=== PATIENT | male | born 1945 | race African-American/Black ===

== ENCOUNTER 2019-12-27 09:47 | Emergency (ER) | payer OTHER ==
[~2019-12-27] VITALS: Ht 180.3 cm; Wt 70.3 kg
[~2019-12-27 09:47] MED LIST: IBUPROFEN 800800 M1 PO; LIDODERM 5%1 PATC1 TRANSDERM; NORCO 5-325 TA1 EACH PO
[2019-12-27] MEDS ORDERED: PREDNISONE 20 M20 MG PO (11:27)
[2019-12-27] MEDS ORDERED: LEVAQUIN 750 M750 MG PO (11:27)
[2019-12-27 12:04] VITALS: BP 133/71
--- NOTE | 2019-12-27 16:18 | EKG ---
[facility] [place] [address] ELECTROCARDIOGRAM REPORT Name: SADIE VIDALES Room #: DEP [facility]#: [id number] Admission: 12/27/19 Attend Phys: Discharge: 12/27/19 Date of : 41 Report #: [id number] THIS REPORT FOR: cc: FAM - Family physician unknown FAM - Family physician unknown Zaid Reaves MD ~ THIS REPORT FOR: //name// [facility] ED Test Date: 2019-12-27 Test Time: 10:07:40 Pat Name: SADIE VIDALES Department: Room: Gender: Senior Loss Control Specialist: : 1945 Requested By: Devan Calabrese Order Number: [id number] MD: Zaid Reaves Measurements Intervals [place] Rate: 85 P: 80 NC: 156 QRS: 13 QRSD: 88 T: -21 QT: 391 QTc: 465 Interpretive Statements Sinus rhythm Left atrial enlargement Left ventricular hypertrophy Anterior Q waves, possibly due to LVH Borderline T abnormalities, inferior leads No previous ECG available for comparison Electronically Signed On 12-27-2019 16:17:28 SNOW MAKER by Zaid Reaves [email or web address] <ELECTRONICALLY SIGNED> By: Zaid Reaves MD 12/27/19 1617 1007 1007 Zaid Reaves MD /EPI
== END 2019-12-27 12:05 | disposition home or self-care (01) ==
LOC: ER 09:47
DX: J18.9 Pneumonia, unspecified organism (principal); F17.210 Nicotine dependence, cigarettes, uncomplicated

== ENCOUNTER 2020-07-11 14:59 | Emergency (ER) | payer OTHER ==
[~2020-07-11] VITALS: Ht 182.9 cm; Wt 79.4 kg
[~2020-07-11 14:59] MED LIST changes: +LEVAQUIN 750 M750 MG PO; +PREDNISONE 20 M20 MG PO
[2020-07-11 16:12] LABS: BASOPHILS 0.8 % (0.0-2.0); EOSINOPHILS 2.4 % (0.0-3.0); HEMATOCRIT 46.4 % (42.0-52.0); HEMOGLOBIN 16.2 gm/dL (14.0-18.0); LYMPHOCYTES 26.6 % (24.0-44.0); MCH 34.6 pg (26.0-34.0); MCV 98.8 fL (80.0-100.0); MONOCYTES 10.2 % (1.0-8.0); PLATELET COUNT 283 thou/uL (150-400); RDW 14.5 % (10.5-14.5); WBC 8.4 thou/uL (4.0-11.0)
[2020-07-11 16:16] LABS: ANION GAP 11 mmol/L (7-16); BUN 10 mg/dL (7-18); CALCIUM 9.2 mg/dL (8.5-10.1); CHLORIDE 104 mmol/L (98-107); CO2 27 mmol/L (21-32); CREATININE 0.9 mg/dL (0.7-1.3); GLUCOSE 122 mg/dL (74-106); POTASSIUM 4.5 mmol/L (3.5-5.1); SODIUM 142 mmol/L (136-145)
[2020-07-11 16:26] LABS: ALBUMIN 3.7 g/dL (3.4-5.0); LIPASE 75 U/L (73-393); SGOT 20 U/L (15-37); SGPT 20 U/L (30-65); TOTAL BILIRUBIN 0.8 mg/dL (0.2-1.0); TOTAL PROTEIN 8.3 g/dL (6.4-8.2); TROPONIN-I <0.06 ng/mL (<0.06)
[2020-07-11 18:02] LABS: URINE BILIRUBIN NEGATIVE (Negative); URINE BLOOD TRACE (Negative); URINE CLARITY SL CLOUDY; URINE COLOR YELLOW; URINE GLUCOSE-RANDOM* NEGATIVE (Negative); URINE KETONES NEGATIVE (Negative); URINE LEUKOCYTES-REFLEX TRACE (Negative); URINE NITRITE-REFLEX POSITIVE (Negative); URINE PROTEIN (DIPSTICK) NEGATIVE (Negative); URINE SPECIFIC GRAVITY 1.025 (1.005-1.035); URINE UROBILINOGEN 0.2 E.U./dl (0.2-1.0)
[2020-07-11 18:08] LABS: BACTERIA-REFLEX >30 Many /HPF (None Seen); CRYSTALS None Seen /LPF (None Seen); HYALINE CASTS 0-3 Few /LPF (None Seen); SQUAMOUS 0-3 Few /LPF (0-3); URINE WBC-REFLEX 6-15 Few /HPF (0-5)
[2020-07-11 18:17] LABS: URINE RBC 0-2 Rare /HPF (0-2)
[2020-07-11] MEDS ORDERED: NORCO 5-325 TA1 EAC2 PO (19:15)
[2020-07-11] MEDS ORDERED: LIDODERM1 EACH TOP (19:15)
[2020-07-11 19:23] VITALS: BP 180/94
--- NOTE | 2020-07-13 16:30 | EKG ---
[facility] [place] [address] ELECTROCARDIOGRAM REPORT Name: SADIE VIDALES Room #: [facility]#: [id number] Admission: 07/11/20 Attend Phys: Discharge: 07/11/20 Date of : 41 Report #: [id number] THIS REPORT FOR: cc: FAM - Family physician unknown FAM - Family physician unknown Aldair Larios MD [facility] THIS REPORT FOR: //name// [facility] ED Test Date: 2020-07-11 Test Time: 15:01:22 Pat Name: SADIE VIDALES Department: Room: Gender: Shafting Cleaner: [facility] : 1945 Requested By: Amish Garcia Order Number: [id number] MD: Aldair Larios Measurements Intervals [place] Rate: 102 P: 73 WY: 159 QRS: 36 QRSD: 72 T: 38 QT: 349 QTc: 455 Interpretive Statements Sinus tachycardia Anteroseptal infarct, old Minimal ST depression, lateral leads Baseline wander in lead(s) I,III,aVL Compared to ECG 12/27/2019 10:07:40 ST (T wave) deviation now present Electronically Signed On 07-13-2020 16:29:48 CDT by Aldair Larios [email or web address] <ELECTRONICALLY SIGNED> By: Aldair Larios MD, FAC 07/13/20 1629 1501 1501 Aldair Larios MD, FAC /EPI
== END 2020-07-11 20:14 | disposition home or self-care (01) ==
LOC: ER 14:59
PROVIDERS: Emergency Medicine
DX: S22.32XA Fracture of one rib, left side, initial encounter for closed fracture (principal); R10.12 Left upper quadrant pain; F17.210 Nicotine dependence, cigarettes, uncomplicated; X58.XXXA Exposure to other specified factors, initial encounter; Y93.89 Activity, other specified; Y92.89 Other specified places as the place of occurrence of the external cause; Y99.8 Other external cause status

== ENCOUNTER 2020-12-11 11:44 | Inpatient (IN) | payer OTHER ==
[~2020-12-11] VITALS: Ht 182.9 cm; Wt 72.6 kg
[~2020-12-11 11:44] MED LIST changes: +LIDODERM1 EACH TOP; +NORCO 5-325 TA1 EAC2 PO
[2020-12-11 11:55] VITALS: BP 137/69
[2020-12-11 12:57] LABS: HEMOGLOBIN 14.6 gm/dL (14.0-18.0); MCH 32.2 pg (26.0-34.0); MCHC 33.3 g/dL (28.0-37.0); MCV 96.6 fL (80.0-100.0); PLATELET COUNT 286 thou/uL (150-400); RBC 4.55 mil/uL (4.50-6.00); RDW 14.9 % (10.5-14.5); WBC 32.1 thou/uL (4.0-11.0)
[2020-12-11 13:01] LABS: ANION GAP 12 mmol/L (7-16); BUN 11 mg/dL (7-18); CHLORIDE 98 mmol/L (98-107); CO2 24 mmol/L (21-32); CREATININE 1.5 mg/dL (0.7-1.3); GLUCOSE 135 mg/dL (74-106); POTASSIUM 3.8 mmol/L (3.5-5.1); SODIUM 134 mmol/L (136-145)
[2020-12-11 13:11] LABS: ALBUMIN 3.6 g/dL (3.4-5.0); LIPASE 33 U/L (73-393); SGOT 18 U/L (15-37); SGPT 21 U/L (30-65); TOTAL BILIRUBIN 1.3 mg/dL (0.2-1.0); TOTAL PROTEIN 8.5 g/dL (6.4-8.2); TROPONIN-I <0.06 ng/mL (<0.06)
[2020-12-11 13:47] LABS: ABSOLUTE NEUTROPHILS 29.5 thou/uL (1.4-8.2); PLATELET ESTIMATE NORMAL
[2020-12-11 15:30] LABS: URINE BILIRUBIN NEGATIVE (Negative); URINE BLOOD 1+ (Negative); URINE CLARITY CLEAR; URINE COLOR YELLOW; URINE GLUCOSE-RANDOM* NEGATIVE (Negative); URINE KETONES NEGATIVE (Negative); URINE LEUKOCYTES-REFLEX NEGATIVE (Negative); URINE PROTEIN (DIPSTICK) 1+ (Negative)
[2020-12-11 15:33] LABS: URINE NITRITE-REFLEX POSITIVE (Negative)
[2020-12-11 15:51] LABS: CASTS None Seen /LPF (None Seen); SQUAMOUS None Seen /LPF (0-3)
[2020-12-11 15:52] LABS: URINE RBC 3-10 Few /HPF (0-2); URINE WBC-REFLEX 0-5 Rare /HPF (0-5)
[2020-12-11 15:53] LABS: BACTERIA-REFLEX 1-9 Few /HPF (None Seen); CRYSTALS None Seen /LPF (None Seen)
[2020-12-11 16:08] VITALS: BP 137/69
[2020-12-11 20:16] VITALS: BP 139/79
[2020-12-11 20:39] VITALS: BP 135/85
--- NOTE | 2020-12-11 23:02 | NUR ---
PT WAS ADMITTED TO THE UNIT FROM THE ER IN A STABLE CONDITION.PT UNABLE TO PROVIDE INFORMATION,FAMILY WAS CALLED AND ADMISSION COMPLETED WITH THEIR HELP.ACCORDING TO FAMILY,PT CAN BE AGGRESSIVE AT TIMES SO BE CAREFUL WHEN APPROACHING HIM.PT HAS BEEN CALM AND COPERATIVE SINCE ADMIT.PT RESTING ON HIS BED AT THIS TIME.FALL PRECAUTIONS IN PLACE.CALL LIGHT WITHIN REACH.
[2020-12-12] VITALS (7 sets, daily range): BP systolic 126–150; BP diastolic 63–78
--- NOTE | 2020-12-12 07:06 | EKG ---
[address] [address] ELECTROCARDIOGRAM REPORT Name: SADIE VIDALES Room #: 445-P ADM IN .R.#: [id number] Admission: 12/11/20 Attend Phys: Alejo Montalvo MD Discharge: Date of : 41 Report #: [id number] [facility] ED Test Date: 2020-12-11 Test Time: 12:55:56 Pat Name: SADIE VIDALES Department: Room: [facility] Gender: M Oracle Analyst: JCHAIDAYDAY : 1945 Requested By: Erika Scherer Order Number: [id number] MD: Alejandro Sauceda Measurements Intervals [place] Rate: 101 P: 79 WV: 151 QRS: 7 QRSD: 85 T: -27 QT: 356 QTc: 462 Interpretive Statements Sinus tachycardia Left ventricular hypertrophy Borderline T abnormalities, inferior leads Compared to ECG 07/11/2020 15:01:22 Left ventricular hypertrophy now present T-wave abnormality now present Myocardial infarct finding no longer present Electronically Signed On 12-12-2020 7:05:52 IMAGER by Alejandro Sauceda [email or web address] <ELECTRONICALLY SIGNED> By: Alejandro Sauceda MD, FAC 12/12/20 0705 1255 1255 Alejandro Sauceda MD, [facility] /EPI
[2020-12-12 08:26] LABS: HEMATOCRIT 38.9 % (42.0-52.0); HEMOGLOBIN 12.9 gm/dL (14.0-18.0); MCH 31.8 pg (26.0-34.0); MCHC 33.2 g/dL (28.0-37.0); MCV 95.9 fL (80.0-100.0); RBC 4.06 mil/uL (4.50-6.00); RDW 15.1 % (10.5-14.5); WBC 31.6 thou/uL (4.0-11.0)
[2020-12-12 08:41] LABS: CALCIUM 9.2 mg/dL (8.5-10.1); CREATININE 1.3 mg/dL (0.7-1.3); POTASSIUM 3.6 mmol/L (3.5-5.1)
--- NOTE | 2020-12-12 12:21 | NUR ---
DPOA RADHA VIDALES, DTR,
--- NOTE | 2020-12-12 12:55 | NUR ---
PT ARRIVE TO UNIT VIA BED AND IV PUMP.
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
--- NOTE | 2020-12-12 16:26 | NUR ---
PT ARRIVED TO UNIT FROM SURGERY. DENIES PAIN. VITALS STABLE.
--- NOTE | 2020-12-13 01:46 | NUR ---
PT AT BEGINNING OF SHIFT WAS ASLEEP AND GROGGY. PT LATER AWAKENED VERY ALERT. PT ASKING WHERE HE WAS AND STATED HE DID NOT REMEMBER HAVING A SURGERY. PT REORIENTED THAT HE HAD HIS APPENDIX REMOVED AND 3 BANDAIDS ON HIS ABD. PT ASKED FREQUENTLY IF HE WAS IN PAIN OR DISCOMFORT AND PT DENIED. PROVIDER DECREASED PRN PAIN MEDICATION DOSAGE AFTER NURSE SHARED DOSAGE CONCERN. PT PROMPTED TO USE URINAL AND URINE TEA COLOR. REMAINS NPO. IVF INTACT. BED ALARM ON.
[2020-12-13 03:37] VITALS: BP 132/80
--- NOTE | 2020-12-13 04:03 | NUR ---
ABD FIRM PT NOT ABLE TO URINATE ONLY DRIBBLE. BLADDER SCAN 285. PROVIDER URBAN REDEVELOPMENT SPECIALIST NOTIIFIED, STRAIGHT CATH ORDER OBTAINED. URINE IS DARK ROWENA.
[2020-12-13 06:39] LABS: HEMATOCRIT 39.7 % (42.0-52.0); HEMOGLOBIN 12.8 gm/dL (14.0-18.0); MCH 31.2 pg (26.0-34.0); MCHC 32.2 g/dL (28.0-37.0); RBC 4.1 mil/uL (4.50-6.00); RDW 15.2 % (10.5-14.5); WBC 21.8 thou/uL (4.0-11.0)
[2020-12-13 06:50] LABS: CALCIUM 8.7 mg/dL (8.5-10.1); CREATININE 1.1 mg/dL (0.7-1.3); POTASSIUM 3.9 mmol/L (3.5-5.1)
[2020-12-13 07:37] VITALS: BP 134/68
[2020-12-13 15:10] VITALS: BP 137/85
--- NOTE | 2020-12-13 15:25 | HC ---
[facility] [place] [address] CONSULTATION Name: SADIE VIDALES Room #: 361-[facility] IN ..#: [id number] Admission: 12/11/20 Attend Phys: Alejo Montalvo MD Discharge: Date of : 41 Report #: [id number] THIS REPORT FOR: cc: FAM - Family physician unknown FAM - Family physician unknown Amish Estrella MD ~ DATE OF SERVICE: 12/12/2020 INFECTIOUS DISEASE CONSULTATION REASON FOR CONSULTATION: I was asked to evaluate concerning COVID-19 infection in the setting of acute appendicitis with perforation. HISTORY OF PRESENT ILLNESS: A 75-year-old with underlying history of dementia, who has had progressive weakness over the past week. Over the last several days, he has had increasing pain in his abdomen and presents with nausea and vomiting. CT scan imaging showed evidence of a cecal mass and suspected perforated appendicitis. He was hemodynamically stable. He has had no fever, chills or sweats. He was screened for COVID-19 and was PCR positive. He has had no cough or sputum production. His oxygenation has remained stable on room air. REVIEW OF SYSTEMS: A 14-point review of system was negative other than what has been described above. The patient was demented and unable to give any further details. ALLERGIES: None known. MEDICATIONS: As noted on his MAR, which were reviewed, now on broad antibiotic coverage. PAST MEDICAL HISTORY: Dementia, pneumonia, cigarette use, alcohol use, amount not clear; left rib fracture several months ago. FAMILY HISTORY: Not available. SOCIAL HISTORY: As noted above, lives with his family. PHYSICAL EXAMINATION: VITAL SIGNS: Afebrile and hemodynamically stable. He was just back from surgery. GENERAL: He was alert and cooperative, although confused. SKIN: Without rash or decubitus. No palpable adenopathy. Was of normal weight. EYES: Without scleral icterus. [facility] [address] [place] [address] CONSULTATION Name: SADIE VIDALES Alison Room #: 361-P [facility] IN [facility]#: [id number] Admission: 12/11/20 Attend Phys: Alejo Montalvo MD Discharge: Date of : 41 Report #: [id number] MOUTH: Without mucositis. NECK: Supple. LUNGS: Clear to auscultation. HEART: Regular, without murmur, gallop or rub. ABDOMEN: Abdomen was moderately distended. Incisions were well approximated. There was no drainage. He was tender mostly in the lower abdomen. No definite mass or hepatosplenomegaly. GENITOURINARY: External genitalia without mass or lesion. RECTAL: Not performed. EXTREMITIES: Without clubbing, cyanosis or edema. NEUROLOGIC: Cranial nerves were intact. He was able to move upper and lower extremities within normal limits. Mood was calm without evidence of anxiety. BACK: Nontender. LABORATORY STUDIES: Reviewed. MICROBIOLOGY: Reviewed. CT scan of the abdomen was reviewed. IMPRESSION: A 75-year-old with: 1. Perforated appendicitis and abscess with localized peritonitis. He is postoperative day today from appendectomy and drainage of the associated abscess. Final operative report is not available. No samples were sent for culture and no drain was in place. 2. COVID-19 with mild disease. No evidence of pneumonia or systemic toxicity. 3. Vital aspiration post-intubation as reported by nursing staff. The patient remains off oxygen and has had no significant cough or sputum production. 4. Dementia. 5. Leukemoid reaction due to abdominal process. 6. Escherichia coli bacteriuria. RECOMMENDATION: Will remain in COVID isolation. The patient would be a good candidate for monoclonal antibody, but this is not available for inpatient use and I am unclear as to the duration of his infection. He is off oxygen and remains stable with O2 saturation 96-98%. There is no indication at this point for antiviral therapy or corticosteroids. We will need to monitor closely in addition to this, he had recently aspirated. We will continue IV antibiotic therapy for his appendiceal abscess. We will await operative report for further details. <ELECTRONICALLY SIGNED> By: Amish Estrella MD 12/13/20 1525 1713 50 Amish Estrella MD /nt
--- NOTE | 2020-12-13 17:39 | NUR ---
ASSUMED PATIENT CARE AT 0700. ALERT TO SELF, IMPULSIVE, PILLED OUT IV THREE TIMES THEN OUT OF BED. PATIENT DENIES PAIN. ABD DISTENTED. NPO STILL. SLOWLT TOWARDS POC GOALS.
[2020-12-13 19:15] VITALS: BP 143/99
--- NOTE | 2020-12-13 22:45 | NUR ---
PT RESTING IN BED. PT ENCOURAGED TO WATCH TV AND NOT TO GET OUT OF BED. IVF INTACT. PT TALKED ON PHONE WITH HIS FAMILY. BED ALARM ON. ABD DISTENDED LESS FIRM THAN LAST NIGHT, STERI STRIPS DRY AND INTACT. PT CONTINUES TO ASK FOR FOOD AND FLUIDS.
--- NOTE | 2020-12-14 02:42 | NUR ---
PT JUMPING OOB TWICE THIS SHIFT. THE SECOND TIME THE PT PULLED OUT HIS IV. PT REPORTED TO HAVE PULLED OUT 4 IVS ON DAY SHIFT. IVF SUSPENDED. WILL NOTIFY PROVIDER TO SEE IF SOFT WRIST RESTRAINT IS WANTED.
--- NOTE | 2020-12-14 02:45 | NUR ---
PT HAD EXPLOSIVE LOOSE STOOL X 1 AND LIQUID LOOSE STOOL X 1.
[2020-12-14 04:24] VITALS: BP 146/79
[2020-12-14 06:45] LABS: BASOPHILS 0.2 % (0.0-2.0); HEMATOCRIT 36.7 % (42.0-52.0); LYMPHOCYTES 4.2 % (24.0-44.0); MCH 31.4 pg (26.0-34.0); MCHC 32.5 g/dL (28.0-37.0); MCV 96.5 fL (80.0-100.0); MONOCYTES 7.1 % (1.0-8.0); PLATELET COUNT 282 thou/uL (150-400); POLYS 88.5 % (36.0-66.0); RBC 3.81 mil/uL (4.50-6.00); RDW 14.8 % (10.5-14.5); WBC 19.2 thou/uL (4.0-11.0)
[2020-12-14 07:09] LABS: ALBUMIN 2.2 g/dL (3.4-5.0); CALCIUM 8.7 mg/dL (8.5-10.1); CREATININE 1.1 mg/dL (0.7-1.3); MAGNESIUM 2.2 mg/dL (1.8-2.4); PHOSPHORUS 1.9 mg/dL (2.6-4.7); POTASSIUM 3.6 mmol/L (3.5-5.1); TOTAL BILIRUBIN 0.7 mg/dL (0.2-1.0); TOTAL PROTEIN 6.5 g/dL (6.4-8.2)
[2020-12-14 07:46] VITALS: BP 154/84
--- NOTE | 2020-12-14 11:08 | NUR ---
PT HAD EMESIS X1 EVENT. LINENS CHANGED.
--- NOTE | 2020-12-14 15:00 | NUR ---
PROVIDED SMALL AMOUNT ICE CHIP TO PT. PT MAKING NUMEROUS REQUESTS FOR WATER. PT TOLERATED ICE CHIPS AT THIS TIME.
[2020-12-14 15:56] VITALS: BP 145/88
--- NOTE | 2020-12-14 17:28 | NUR ---
BLADDER SCAN 131ML
--- NOTE | 2020-12-14 18:51 | NUR ---
PT PULLED OUT IV
[2020-12-14 19:35] VITALS: BP 155/74
--- NOTE | 2020-12-15 00:02 | NUR ---
PT CONFUSED. FORGETFUL. ALERT X1. DAY SHIFT NS STATED HE PULLED OUT IV 10 TIMES. MEDICATED WITH HALDOL. RESTRAINTS APPLIED. NOTIFIED PT'S DAUGHTER RADHA. IV RESTARTED R AC FOR IV FLUIDS. REPORT GIVEN TO PHILIP SANTIAGO WHO ASSUMEDED CARE OF PT AT 23:00. PT RESTING QUIETLY AT THAT TIME. NO S/S DISTRESS.
--- NOTE | 2020-12-15 00:05 | NUR ---
TOOK OVER CARE AT 2300, PT AWAKE WATCHING TV IN BED. IVF INTACT. SOFT WRIST RESTRAINTS INTACT. BED ALARM ON.
--- NOTE | 2020-12-15 02:47 | NUR ---
PT PULLED ARM OUT OF SOFT WRIST RESTRAINTS, PROVIDER NOTIFIED AND ORDER CHANGED TO MITTENS. METALLOGRAPHER AND CHARGE NURSE NOTIFIED.
[2020-12-15 04:51] VITALS: BP 140/77
[2020-12-15 05:00] LABS: HEMATOCRIT 37.5 % (42.0-52.0); HEMOGLOBIN 12.1 gm/dL (14.0-18.0); MCH 31.6 pg (26.0-34.0); MCHC 32.2 g/dL (28.0-37.0); MCV 98.1 fL (80.0-100.0); PLATELET COUNT 301 thou/uL (150-400); RBC 3.82 mil/uL (4.50-6.00); RDW 15.3 % (10.5-14.5); WBC 14.9 thou/uL (4.0-11.0)
[2020-12-15 05:17] LABS: CALCIUM 8.7 mg/dL (8.5-10.1); MAGNESIUM 2.1 mg/dL (1.8-2.4); PHOSPHORUS 2.2 mg/dL (2.5-4.9); POTASSIUM 3.6 mmol/L (3.5-5.1)
--- NOTE | 2020-12-15 06:49 | O ---
[facility] [place] [address] OPERATIVE REPORT Name: SADIE VIDALES Room #: 361-P ADM IN M.R.#: [id number] Admission: 12/11/20 Attend Phys: Alejo Montalvo MD Discharge: Date of : 41 Report #: [id number] THIS REPORT FOR: cc: FAM - Family physician unknown FAM - Family physician unknown Rajesh Lemus MD ~ DATE OF SERVICE: 12/12/2020 PREOPERATIVE DIAGNOSIS: Perforated appendicitis. POSTOPERATIVE DIAGNOSIS: Perforated appendicitis. OPERATION: Laparoscopic appendectomy. SURGEON: Rajesh Lemus MD ANESTHESIA: General. ESTIMATED BLOOD LOSS: Minimal. SPECIMEN: Appendix. DESCRIPTION OF PROCEDURE: After informed consent was obtained, the patient was brought to the operating room and placed supine. SCDs were placed and working, preoperative antibiotics were administered, general anesthesia was induced. The abdomen was prepped and draped in the usual sterile fashion. A 10 mm incision was made above the umbilicus. Fascia was incised and a trocar was placed. Pneumoperitoneum was established. Right upper quadrant and left lower quadrant 5 mm trocars were placed. I examined the right lower quadrant. There was an abscess consistent with the CT findings. There was a fibrinous rind near the cecum. The cecum was somewhat plastered up to the abdominal wall. This was able to be brushed down gently. I did identify the base of the appendix. It was completely ruptured. There was an appendicolith visible. The base of the appendix was then ligated using a PDS Endoloop and the scissor. The mesoappendix was ligated using the DONTRELL choe load stapler. The obliterated appendix was then placed into an Endopouch and removed. The right lower quadrant was irrigated with normal saline. The ports were removed under direct vision. The fascia was then closed with a [id number]-pd-hvzlf 0 Vicryl. Skin was closed with 4-0 Monocryl. Incisions were dressed with Steri-Strips. COMPLICATIONS: None. [address] [address] OPERATIVE REPORT Name: SADIE VIDALES Room #: 361-P [facility]#: [id number] Admission: 12/11/20 Attend Phys: Alejo Montalvo MD Discharge: Date of : 41 Report #: [id number] DISPOSITION: The patient was taken to recovery in satisfactory condition. <ELECTRONICALLY SIGNED> By: Rajesh Lemus MD 12/15/20 0649 1702 1728 Rajesh Lemus MD /nt
--- NOTE | 2020-12-15 10:45 | NUR ---
If diet not able to advance in next 48-72hr, would consider change IV to clinimix PPN at 100ml/hr
[2020-12-15 11:52] LABS: ABSOLUTE NEUTROPHILS 11.9 thou/uL (1.4-8.2); PLATELET ESTIMATE NORMAL
--- NOTE | 2020-12-15 13:26 | NUR ---
PARAMJIT reviewed chart and spoke with nursing and attending physician. Pt placed in mittens due to pulling at lines. Pt had lap appe on 12/12. Pt remains in Enhanced Isolation due to COVID. Pt is afebrile and not requiring O2. Pt is on IV abx. PARAMJIT spoke with pt's dtr, Leyda, via phone to discuss discharge plan: SNF v. Home with HH. Pt's dtr states that family does not want pt to go to a facility, as he will not be able to have visitors. Pt's dtr is agreeable with HH services. Options provided. No preference voiced. PARAMJIT verified pt's home address. PARAMJIT faxed referral to [facility] . Pt's PCP is Dr. Andres Foy. Notified Inge in intake of new HH referral. PARAMJIT is following to assist as needed with discharge planning.
[2020-12-15 15:39] VITALS: BP 143/55
--- NOTE | 2020-12-15 17:27 | NUR ---
PT REMOVED RESTRAINTS JUST PRIOR TO 2 HOUR CHECK. PT HAS BEEN ABLE TO REMOVE REAPPLICATION OF MITTENS. PT CURRENTLY EATING DINNER. IV SECURE, COBAN INTACT
--- NOTE | 2020-12-15 17:30 | NUR ---
PT CONTINUES TO HAVE HYPOACTIVE BOWEL SOUNDS. HAS COMPLETED 2 MEALS OF CLEARS WITH NO EMESIS. PT CONTINUES TO HAVE MIXED URINE/BM WITH DARK GREEN APPEARANCE.
--- NOTE | 2020-12-15 18:32 | NUR ---
THIS RN AT PT BEDSIDE DURING MEALTIME. MITTENS REAPPLIED AFTER PT EATING.
[2020-12-15 20:40] VITALS: BP 143/70
--- NOTE | 2020-12-16 05:09 | NUR ---
PT BEHAVED WELL OVERNIGHT AND DID NOT REMOVE ANY IV'S. USED IPAD AND LET PT AND GRAND DAUGHTER TALK FOR EXTENDED PERIOD. PTS GD TOLD HIM TO LEAVE IV'S ALONE! MITTENS ORDER RENEWED AT 0200. FOLLOWING POC WITH IVF AND IVPB. PT IMPULSIVE AND BED ALARM IS A MUST. PT HAS A BLOODY NOSE NOW.
[2020-12-16 05:29] LABS: ABSOLUTE NEUTROPHILS 11.5 thou/uL (1.4-8.2); BASOPHILS 0.3 % (0.0-2.0); EOSINOPHILS 0.8 % (0.0-3.0); HEMATOCRIT 36.8 % (42.0-52.0); HEMOGLOBIN 12.2 gm/dL (14.0-18.0); LYMPHOCYTES 8.9 % (24.0-44.0); MCHC 33.1 g/dL (28.0-37.0); MCV 96.7 fL (80.0-100.0); MONOCYTES 11.1 % (1.0-8.0); PLATELET COUNT 344 thou/uL (150-400); POLYS 78.9 % (36.0-66.0); RDW 14.9 % (10.5-14.5); WBC 14.6 thou/uL (4.0-11.0)
[2020-12-16 05:34] VITALS: BP 172/94
[2020-12-16 05:49] LABS: CALCIUM 8.5 mg/dL (8.5-10.1); CREATININE 1.1 mg/dL (0.7-1.3); POTASSIUM 3.2 mmol/L (3.5-5.1)
[2020-12-16 07:55] VITALS: BP 142/68
--- NOTE | 2020-12-16 10:39 | NUR ---
THIS RN CHECKED PT AT 0820. PT HAD REMOVED MITTENS. THIS RN UNABLE TO KEEP PT IN MITTENS PT REMOVES THEM WHEN RN LEAVES ROOM.
--- NOTE | 2020-12-16 10:54 | NUR ---
SW reviewed chart and spoke with nursing and attending physician. Pt remains in Enhanced Isolation due to COVID. Pt is afebrile and not requiring O2. Pt's diet is being advanced. Discharge home with is anticipated for tomorrow. SW left message for pt's dtr, Leyda, to provide update. SW notified Hensley in intake at [facility] of anticipated discharge. SW is following to assist as needed with discharge planning.
--- NOTE | 2020-12-16 19:07 | PATH ---
[facility] [address] [place] [address] PATHOLOGY RPT PROCEDURE Name: SADIE OLMSTEAD Room #: 351-P [facility] IN M.R.#: [id number] Admission: 12/11/20 Date of : 41 Discharge: Report #: [id number] Path Case #: [id number] LCA Accession Number: [id number] . 01 Material submitted: . appendix - APPENDIX . 01 Clinical history: . APPENDICITIS . 02 Diagnosis: Vermiform appendix, laparoscopic excision: - Severe acute appendicitis, with perforation and periappendiceal abscess; negative for malignancy. (MLK:mary; 12/16/2020) S 12/16/2020 1813 Local . 02 Electronically signed: . Fabby Schilling MD, Pathologist NPI- [id number] . 01 Gross description: . The specimen is received in formalin, labeled "Koehler [place], appendix". Received is a segment of dusky choe-brown, ragged tissue measuring 2.3 x 1.8 x 0.7 cm in greatest dimensions. A stapled margin is not grossly identified. Sectioning reveals a possible perforated lumen. The specimen is submitted entirely in cassettes A1 through A3. (CAA; 12/15/2020) QAC/QAC 12/15/2020 1554 Local . 02 Pathologist provided ICD-10: K35.33 . 02 CPT . 908045 Specimen Comment: Report sent to Performed at: [address], [place] [id number] MD Gage Whitfield MD Phone: [phone] Performed at: [address] [id number] MD Luz Akers MD Phone: [phone]
[2020-12-16 19:27] VITALS: BP 173/100
[2020-12-17 04:21] VITALS: BP 157/97
[2020-12-17 07:38] VITALS: BP 161/93
--- NOTE | 2020-12-17 12:38 | NUR ---
SW reviewed chart and spoke with nursing and attending physician. Pt remains in Enhanced Isolation due to COVID. Pt is afebrile and not requiring O2. Pt's diet is being advanced today. Anticipate discharge home with [facility] tomorrow. SW left voice message for pt's dtr, Leyda ([phone]) to provide update and notify of anticipated discharge. PARAMJIT is following to assist as needed with discharge planning.
[2020-12-17 15:33] VITALS: BP 166/97
--- NOTE | 2020-12-17 17:46 | NUR ---
RN ASSUMED PT'S CARE AT 0700AM, PT KNOWS HIS NAME , BUT PT IS CONFUSED , AND PT IS IMPULSIVE AT TIME, PT IS ON ROOM AIR , PT'S VS ARE STABLE, PT'S ABD SURGICAL AREAS ARE CDI, PT DENIES PAIN AND SOB BY THIS TIME, PT HAS MEDICATION FOR N/V, PT IS CONTINUING IV ABX AND IV FLIUD.
[2020-12-17 19:15] VITALS: BP 166/92
[2020-12-18 03:29] VITALS: BP 162/96
[2020-12-18 06:14] LABS: CALCIUM 8.3 mg/dL (8.5-10.1)
[2020-12-18 06:15] LABS: POTASSIUM 2.9 mmol/L (3.5-5.1)
[2020-12-18 07:15] VITALS: BP 184/101
--- NOTE | 2020-12-18 07:30 | NUR ---
PROGRESS PT ALERT BUT CONFUSED AND IMPULSIVE GETS OOB UNASSISTED, RE-EDUCATED FREQUENTLY ABOUT USING CALL LIGHT. IVF'S INFUSING ORDERED, ANTIBIOTICS ADMINISTERED ORDERED. ABDOMEN ROUND FIRM WITH HYPOACTIVE BS, HAD A FEW LIQUID GREEN STOOLS REPORTS PAIN AT A LEVEL OF 2 BUT DENIES NEED FOR PAIN MEDICATION VOIDING QS, TOLERATING LIQUIDS POOR APPETITE THROUGHOUT DAY CONTINUE POC.
[2020-12-18 10:58] VITALS: BP 184/101
[2020-12-18] MEDS ORDERED: CIPRO500 M1 PO ×2 (11:38)
[2020-12-18] MEDS ORDERED: FLAGYL500 M1 PO ×2 (11:38)
--- NOTE | 2020-12-18 12:32 | NUR ---
DISCHARGE NOTE: PARAMJIT reviewed chart and spoke with nursing and attending physician. Pt is medically stable for discharge home today. Pt is tolerating a regular diet. PARAMJIT faxed finalized discharge orders/summary to [facility] and notified Shellie in intake of pt's discharge. PARAMJIT spoke with pt's granddtr via phone to notify of discharge. Pt's granddtr states she will be picking up pt between [phone]. PARAMJIT updated pt's nurse. Surgery to clear pt prior to discharge. Contact info for HH placed in pt's discharge summary. No additional SW needs identified at this time, but is available to assist should needs arise.
[2020-12-18 16:10] VITALS: BP 172/90
--- NOTE | 2020-12-18 17:52 | NUR ---
PATIENT DISCHARGED WITH ALL BELONGINGS AT 1740. PATIENT LEFT WITH DAUGHTER, RADHA, IN DAUGHTER'S CAR.
== END 2020-12-18 17:57 | disposition home health service (06) | DRG 853 ==
LOC: ER 11:44 → EROBS 15:58 → 4S 17:50 → 3W 17:50 → 4S 20:29 → 3W 12-12 12:50
PROVIDERS: Hospitalist; Internal Medicine; Physician Assistant; Surgery; ADMIT Hospitalist; ATTEND Hospitalist
PROC: 0DTJ4ZZ Resection of Appendix, Percutaneous Endoscopic Approach (ICD-10-PCS; principal; 2020-12-12)
DX: A41.51 Sepsis due to Escherichia coli [E. coli] (principal); K35.33 Acute appendicitis with perforation, localized peritonitis, and gangrene, with abscess; U07.1 COVID-19; E43 Unspecified severe protein-calorie malnutrition; J69.0 Pneumonitis due to inhalation of food and vomit; N17.9 Acute kidney failure, unspecified; N39.0 Urinary tract infection, site not specified; K91.30 Postprocedural intestinal obstruction, unspecified as to partial versus complete; F03.90 Unspecified dementia, unspecified severity, without behavioral disturbance, psychotic disturbance, mood disturbance, and anxiety; D72.823 Leukemoid reaction; R65.20 Severe sepsis without septic shock; F17.210 Nicotine dependence, cigarettes, uncomplicated; Z87.81 Personal history of (healed) traumatic fracture; Z79.899 Other long term (current) drug therapy; Z68.21 Body mass index [BMI] 21.0-21.9, adult
CPT/HCPCS: 10080; 10195; 50101; 50411; 50555; 50739; 50740; 51297; 51489; 52265; 52266; 53307; 53312; 53314; 56462; 56525; 56526; 58574; 62110; 62900

== ENCOUNTER 2020-12-19 08:36 | Emergency (ER) | payer OTHER ==
[~2020-12-19] VITALS: Ht 182.9 cm; Wt 83.9 kg
[~2020-12-19 08:36] MED LIST changes: +CIPRO500 M1 PO; +FLAGYL500 M1 PO
[2020-12-19 08:37] VITALS: BP 155/88
== END 2020-12-19 09:45 | disposition home or self-care (01) ==
LOC: ER 08:36
DX: U07.1 COVID-19 (principal); F17.210 Nicotine dependence, cigarettes, uncomplicated; Z79.899 Other long term (current) drug therapy

== ENCOUNTER 2021-01-19 14:22 | Emergency (ER) | payer OTHER ==
[~2021-01-19] VITALS: Ht 182.9 cm; Wt 74.8 kg
[2021-01-19 15:57] LABS: ABSOLUTE NEUTROPHILS 3.9 thou/uL (1.4-8.2); BASOPHILS 0.5 % (0.0-2.0); EOSINOPHILS 5.8 % (0.0-3.0); HEMATOCRIT 40.6 % (42.0-52.0); HEMOGLOBIN 13.3 gm/dL (14.0-18.0); LYMPHOCYTES 34.3 % (24.0-44.0); MCH 32.2 pg (26.0-34.0); MCHC 32.7 g/dL (28.0-37.0); MCV 98.6 fL (80.0-100.0); MONOCYTES 7.7 % (1.0-8.0); PLATELET COUNT 426 thou/uL (150-400); POLYS 51.7 % (36.0-66.0); RBC 4.12 mil/uL (4.50-6.00); WBC 7.5 thou/uL (4.0-11.0)
[2021-01-19 16:04] LABS: CALCIUM 9.2 mg/dL (8.5-10.1); CREATININE 0.9 mg/dL (0.7-1.3)
[2021-01-19 16:10] LABS: ALBUMIN 3.2 g/dL (3.4-5.0); TOTAL BILIRUBIN 0.5 mg/dL (0.2-1.0); TOTAL PROTEIN 7.9 g/dL (6.4-8.2)
[2021-01-19] MEDS ORDERED: KLOR-CON M2020 MEQ PO (17:04)
[2021-01-19] MEDS ORDERED: LASIX 40 MG TAB40 MG PO (17:04)
[2021-01-19 17:45] VITALS: BP 167/91
--- NOTE | 2021-01-20 12:07 | EKG ---
[place] [address] [facility] [place] [address] ELECTROCARDIOGRAM REPORT Name: SADIE VIDALES Room #: [facility]#: [id number] Admission: 01/19/21 Attend Phys: Discharge: 01/19/21 Date of : 41 Report #: [id number] [facility] Test Date: 2021-01-19 Test Time: 14:46:29 Pat Name: SADIE VIDALES Department: Room: Gender: M Chemist Proteins: JULIO C : 1945 Requested By: Kayla Casanova Order Number: [id number] MD: Alejandro Sauceda Measurements Intervals [place] Rate: 73 P: 70 TN: 155 QRS: 23 QRSD: 78 T: 31 QT: 437 QTc: 482 Interpretive Statements Sinus arrhythmia Borderline low voltage, extremity leads Left ventricular hypertrophy Anterior Q waves, possibly due to LVH Compared to ECG 12/11/2020 12:55:56 Q waves now present Sinus tachycardia no longer present T-wave abnormality no longer present Electronically Signed On 01-20-2021 12:07:15 CDT by Alejandro Sauceda [email or web address] <ELECTRONICALLY SIGNED> By: Alejandro Sauceda MD, [facility] 01/20/21 1207 1446 1446 Alejandro Sauceda MD, [facility] /EPI
== END 2021-01-19 17:45 | disposition home or self-care (01) ==
LOC: ER 14:22
PROVIDERS: Nurse Practitioner Family
DX: R60.0 Localized edema (principal); R79.89 Other specified abnormal findings of blood chemistry; F17.210 Nicotine dependence, cigarettes, uncomplicated; Z79.2 Long term (current) use of antibiotics; Z79.899 Other long term (current) drug therapy

== ENCOUNTER 2021-10-27 18:55 | Emergency (ER) | payer OTHER ==
[~2021-10-27] VITALS: Wt 81.7 kg
[~2021-10-27 18:55] MED LIST changes: +KLOR-CON M2020 MEQ PO; +LASIX 40 MG TAB40 MG PO
[2021-10-27] MEDS ORDERED: LIDODERM1 EACH TOP (23:48)
[2021-10-27] MEDS ORDERED: IBUPROFEN 800800 MG PO (23:48)
[2021-10-28 00:06] VITALS: BP 156/88
[2021-10-28] MEDS ORDERED: PREDNISONE 20 M20 MG PO (00:24)
== END 2021-10-28 00:32 | disposition home or self-care (01) ==
LOC: ER 18:55
DX: M25.551 Pain in right hip (principal); F32.9 Major depressive disorder, single episode, unspecified; F17.210 Nicotine dependence, cigarettes, uncomplicated